=== PATIENT | female | born 1995 | race Caucasian/White ===

== ENCOUNTER 2018-06-30 15:37 | Emergency (ER) | payer OTHER ==
[~2018-06-30] VITALS: Ht 157.5 cm; Wt 97.0 kg
[2018-06-30] MEDS ORDERED: PAIN RELIEF325 MG PO (16:14)
[2018-06-30 16:20] VITALS: BP 110/77
== END 2018-06-30 16:20 | disposition home or self-care (01) ==
LOC: ED 15:37
DX: M75.51 Bursitis of right shoulder (principal); Z33.1 Pregnant state, incidental

== ENCOUNTER 2018-08-22 12:39 | Emergency (ER) | payer OTHER ==
[~2018-08-22] VITALS: Ht 157.5 cm; Wt 99.1 kg
[~2018-08-22 12:39] MED LIST: PAIN RELIEF325 MG PO
[2018-08-22] MEDS ORDERED: PNV PRENATAL PL1 TAB PO (12:56)
[2018-08-22 13:15] VITALS: BP 155/67
== END 2018-08-22 13:15 | disposition left against medical advice (07) ==
LOC: ED 12:39
DX: O47.03 False labor before 37 completed weeks of gestation, third trimester (principal); R06.02 Shortness of breath; R05 Cough; Z3A.31 31 weeks gestation of pregnancy; Z91.19 Patient's noncompliance with other medical treatment and regimen

== ENCOUNTER 2019-01-04 11:58 | Emergency (ER) | payer OTHER ==
[~2019-01-04] VITALS: Ht 157.5 cm; Wt 90.0 kg
[~2019-01-04 11:58] MED LIST changes: +PNV PRENATAL PL1 TAB PO
[2019-01-04 13:00] LABS: HEMATOCRIT 41.2 % (37.0-47.0); HEMOGLOBIN 13.8 g/dl (12.0-16.0); IMMATURE GRANULOCYTES 0.2 % (0.0-5.0); MEAN CELL VOLUME 87.8 fL CALC (80.0-100.0); MEAN CORPUSCULAR HGB 29.4 pG CALC (26.0-32.0); MEAN CORPUSCULAR HGB CONC 33.5 g/L CALC (32.0-36.0); NEUT# 3.56 thou/uL (2.00-7.15); RED BLOOD COUNT 4.69 mill/uL (4.20-5.60)
[2019-01-04 13:02] LABS: URINE BILIRUBIN - DIPSTICK NEGATIVE (NEGATIVE); URINE BLOOD DIPSTICK NEGATIVE (NEGATIVE); URINE COLOR YELLOW; URINE GLUCOSE - DIPSTICK NEGATIVE (NEGATIVE); URINE KETONE NEGATIVE (NEGATIVE); URINE NITRITE - DIPSTICK NEGATIVE (Negative); URINE PROTEIN - DIPSTICK NEGATIVE (NEG-TRACE); URINE SPECIFIC GRAVITY >=1.030; URINE UROBILINOGEN - DIPSTICK 0.2 E.U./dL (0.2)
[2019-01-04 13:03] LABS: URINE LEUK ESTERASE SMALL (NEGATIVE)
[2019-01-04 13:04] LABS: URINE EPITHELIAL CELLS FEW EPI/hpf (0-FEW)
[2019-01-04 13:07] LABS: BARBITURATES NEGATIVE (NEGATIVE); COCAINE NEGATIVE (NEGATIVE); METHADONE NEGATIVE (NEGATIVE); OXCYCODONE NEGATIVE (NEGATIVE); TETRAHYDROCANNABIONOL NEGATIVE (NEGATIVE); TRICYLIC ANTIDEPRESSANTS NEGATIVE (NEGATIVE)
[2019-01-04 13:30] LABS: ALBUMIN 4.2 g/dL (3.2-5.0); ALKALINE PHOSPHATASE 77 u/l (38-126); ANION GAP 13 (6-22 (CALC)); BILIRUBIN, TOTAL 0.7 mg/dL (0.0-1.4); BUN 10 mg/dL (7-17); BUN/CREATININE RATIO 14 (12-20 (CALC)); CARBON DIOXIDE 23 mmol/l (22-30); CHLORIDE 109 mmol/l (95-108); CREATININE 0.7 mg/dL (0.5-1.0); GFR > 60 ML/MIN (>=60 (CALC)); GFR FOR AFR.AMER. > 60 ML/MIN (>=60 (CALC)); LIPASE 48 u/l (23-300); POTASSIUM 3.9 mmol/l (3.5-5.1); SGOT/AST 21 u/l (14-36); SODIUM 141 mmol/l (137-146); TOTAL PROTEIN 7.4 g/dL (6.3-8.2)
[2019-01-04] MEDS ORDERED: GENTAMICIN0.3 % OU (14:07)
[2019-01-04] MEDS ORDERED: MACRODANTIN100 MG PO (14:07)
[2019-01-04 14:15] VITALS: BP 124/63
== END 2019-01-04 14:15 | disposition home or self-care (01) ==
LOC: ED 11:58
DX: N39.0 Urinary tract infection, site not specified (principal); H10.33 Unspecified acute conjunctivitis, bilateral; R10.32 Left lower quadrant pain; R10.31 Right lower quadrant pain; R19.7 Diarrhea, unspecified

== ENCOUNTER 2019-03-07 09:49 | Emergency (ER) | payer OTHER ==
[~2019-03-07] VITALS: Ht 157.5 cm; Wt 100.0 kg
[~2019-03-07 09:49] MED LIST changes: +GENTAMICIN0.3 % OU; +MACRODANTIN100 MG PO
[2019-03-07 10:51] LABS: HEMATOCRIT 38.6 % (37.0-47.0); HEMOGLOBIN 12.7 g/dl (12.0-16.0); IMMATURE GRANULOCYTES 0.4 % (0.0-5.0); MEAN CELL VOLUME 86.7 fL CALC (80.0-100.0); MEAN CORPUSCULAR HGB 28.5 pG CALC (26.0-32.0); MEAN CORPUSCULAR HGB CONC 32.9 g/L CALC (32.0-36.0); NEUT# 5.12 thou/uL (2.00-7.15); RED BLOOD COUNT 4.45 mill/uL (4.20-5.60); RED CELL DISTRI WIDTH 13.5 % (11.5-15.5)
[2019-03-07] MEDS ORDERED: PROVENTIL HFA IN (11:20)
[2019-03-07] MEDS ORDERED: MEDDOSEPAK PO (11:20)
[2019-03-07] MEDS ORDERED: ZITHROMAX250 MG PO (11:20)
[2019-03-07 11:37] VITALS: BP 122/76
== END 2019-03-07 11:44 | disposition home or self-care (01) ==
LOC: ED 09:49
PROVIDERS: Emergency Medicine
DX: J06.9 Acute upper respiratory infection, unspecified (principal); J40 Bronchitis, not specified as acute or chronic; R06.02 Shortness of breath; R07.89 Other chest pain

== ENCOUNTER 2019-05-08 08:31 | Emergency (ER) | payer OTHER ==
[~2019-05-08] VITALS: Ht 157.5 cm; Wt 94.5 kg
[~2019-05-08 08:31] MED LIST changes: +MEDDOSEPAK PO; +PROVENTIL HFA IN; +ZITHROMAX250 MG PO
[2019-05-08] MEDS ORDERED: PROAIR HFA108 MCG/AC IN (09:18)
[2019-05-08 09:20] LABS: URINE GLUCOSE - DIPSTICK NEGATIVE (NEGATIVE); URINE KETONE >=80 mg/dL (NEGATIVE); URINE SPECIFIC GRAVITY 1.025; URINE UROBILINOGEN - DIPSTICK 0.2 E.U./dL (0.2)
[2019-05-08 09:21] LABS: HEMATOCRIT 40.2 % (37.0-47.0); HEMOGLOBIN 13.6 g/dl (12.0-16.0); IMMATURE GRANULOCYTES 0.3 % (0.0-5.0); MEAN CELL VOLUME 85.5 fL CALC (80.0-100.0); MEAN CORPUSCULAR HGB 28.9 pG CALC (26.0-32.0); MEAN CORPUSCULAR HGB CONC 33.8 g/L CALC (32.0-36.0); NEUT# 6.19 thou/uL (2.00-7.15); RED BLOOD COUNT 4.7 mill/uL (4.20-5.60)
[2019-05-08 09:32] LABS: URINE BILIRUBIN - DIPSTICK SMALL (NEGATIVE)
[2019-05-08 09:33] LABS: URINE COLOR DK. YELLOW
[2019-05-08 09:34] LABS: URINE BLOOD DIPSTICK NEGATIVE (NEGATIVE); URINE NITRITE - DIPSTICK NEGATIVE (Negative); URINE PROTEIN - DIPSTICK Trace mg/dL (NEG-TRACE)
[2019-05-08 09:35] LABS: URINE EPITHELIAL CELLS FEW EPI/hpf (0-FEW); URINE LEUK ESTERASE MODERATE (NEGATIVE); URINE MUCUS MODERATE hpf (NONE-FEW)
[2019-05-08 09:36] LABS: BARBITURATES NEGATIVE (NEGATIVE); COCAINE NEGATIVE (NEGATIVE); METHADONE NEGATIVE (NEGATIVE); OXCYCODONE NEGATIVE (NEGATIVE); TETRAHYDROCANNABIONOL NEGATIVE (NEGATIVE); TRICYLIC ANTIDEPRESSANTS NEGATIVE (NEGATIVE); URINE BACTERIA FEW hpf
[2019-05-08 09:41] LABS: ALBUMIN 4.1 g/dL (3.2-5.0); ALKALINE PHOSPHATASE 70 u/l (38-126); ANION GAP 16 (6-22 (CALC)); BILIRUBIN, TOTAL 0.6 mg/dL (0.0-1.4); BUN 6 mg/dL (7-17); BUN/CREATININE RATIO 12 (12-20 (CALC)); CARBON DIOXIDE 18 mmol/l (22-30); CHLORIDE 108 mmol/l (95-108); CREATININE 0.5 mg/dL (0.5-1.0); GFR > 60 ML/MIN (>=60 (CALC)); GFR FOR AFR.AMER. > 60 ML/MIN (>=60 (CALC)); POTASSIUM 3.9 mmol/l (3.5-5.1); SGOT/AST 18 u/l (14-36); SODIUM 138 mmol/l (137-146); TOTAL PROTEIN 7.4 g/dL (6.3-8.2)
[2019-05-08] MEDS ORDERED: ZITHROMAX250 MG PO (09:55)
[2019-05-08] MEDS ORDERED: ZOFRAN4 M1 PO (09:55)
[2019-05-08] MEDS ORDERED: MACROBID100 MG PO (09:55)
[2019-05-08 10:03] VITALS: BP 110/67
== END 2019-05-08 10:12 | disposition home or self-care (01) ==
LOC: ED 08:31
PROVIDERS: Emergency Medicine
DX: O23.41 Unspecified infection of urinary tract in pregnancy, first trimester (principal); O99.511 Diseases of the respiratory system complicating pregnancy, first trimester; J02.0 Streptococcal pharyngitis; Z3A.10 10 weeks gestation of pregnancy

== ENCOUNTER 2019-06-11 11:31 | Emergency (ER) | payer OTHER ==
[~2019-06-11] VITALS: Ht 157.5 cm; Wt 95.0 kg
[~2019-06-11 11:31] MED LIST changes: +MACROBID100 MG PO; +PROAIR HFA108 MCG/AC IN; +ZOFRAN4 M1 PO
[2019-06-11] MEDS ORDERED: ONDANSETRON4 MG PO (11:44)
[2019-06-11 12:35] VITALS: BP 133/64
== END 2019-06-11 12:35 | disposition home or self-care (01) ==
LOC: ED 11:31
DX: S80.01XA Contusion of right knee, initial encounter (principal); W01.0XXA Fall on same level from slipping, tripping and stumbling without subsequent striking against object, initial encounter; Y93.89 Activity, other specified; Y92.511 Restaurant or cafe as the place of occurrence of the external cause; Y99.0 Civilian activity done for income or pay; Z33.1 Pregnant state, incidental

== ENCOUNTER 2020-04-25 19:46 | Emergency (ER) | payer OTHER ==
[~2020-04-25] VITALS: Ht 157.5 cm; Wt 91.0 kg
[~2020-04-25 19:46] MED LIST changes: +ONDANSETRON4 MG PO
[2020-04-25 21:07] LABS: HEMATOCRIT 38.9 % (37.0-47.0); HEMOGLOBIN 13.2 g/dl (12.0-16.0); IMMATURE GRANULOCYTES 0.2 % (0.0-5.0); MEAN CORPUSCULAR HGB 28.5 pG CALC (26.0-32.0); MEAN CORPUSCULAR HGB CONC 33.9 g/dL CAL (32.0-36.0); NEUT# 7.75 thou/uL (2.00-7.15); RED BLOOD COUNT 4.63 mill/uL (4.20-5.60); RED CELL DISTRI WIDTH 13.5 % (11.5-15.5)
[2020-04-25 21:11] LABS: URINE BILIRUBIN - DIPSTICK NEGATIVE (NEGATIVE); URINE BLOOD DIPSTICK NEGATIVE (NEGATIVE); URINE COLOR YELLOW; URINE GLUCOSE - DIPSTICK NEGATIVE (NEGATIVE); URINE KETONE NEGATIVE (NEGATIVE); URINE NITRITE - DIPSTICK NEGATIVE (Negative); URINE PROTEIN - DIPSTICK NEGATIVE (NEG-TRACE); URINE UROBILINOGEN - DIPSTICK 0.2 E.U./dL (0.2)
[2020-04-25 21:14] LABS: URINE LEUK ESTERASE SMALL (NEGATIVE)
[2020-04-25 21:21] LABS: URINE RBC 0-2 RBC/hpf (0-5); URINE SQUAMOUS EPITHELIAL CELL MODERATE EPI/hpf (0-FEW)
[2020-04-25 21:25] LABS: ALBUMIN 4.2 g/dL (3.2-5.0); ALKALINE PHOSPHATASE 63 u/l (38-126); AMYLASE 58 u/l (30-110); BILIRUBIN, TOTAL 0.6 mg/dL (0.0-1.4); BUN 13 mg/dL (7-17); BUN/CREATININE RATIO 21 (12-20 (CALC)); CHLORIDE 109 mmol/l (95-108); CREATININE 0.6 mg/dL (0.5-1.0); GFR > 60 ML/MIN (>=60 (CALC)); GFR FOR AFR.AMER. > 60 ML/MIN (>=60 (CALC)); LIPASE 81 u/l (23-300); POTASSIUM 4.1 mmol/l (3.5-5.1); SGOT/AST 23 u/l (14-36); SODIUM 138 mmol/l (137-146); TOTAL PROTEIN 7.5 g/dL (6.3-8.2)
[2020-04-25 21:26] LABS: ANION GAP 11 (6-22 (CALC)); CARBON DIOXIDE 22 mmol/l (22-30)
[2020-04-25] MEDS ORDERED: TORADOL PO (23:08)
[2020-04-25 23:10] VITALS: BP 104/50
== END 2020-04-25 23:10 | disposition home or self-care (01) ==
LOC: ED 19:46
PROVIDERS: Family Medicine
DX: R10.11 Right upper quadrant pain (principal)
CPT/HCPCS: J0131; Q9967

== ENCOUNTER 2021-03-24 21:25 | Emergency (ER) | payer OTHER ==
[~2021-03-24] VITALS: Ht 157.5 cm; Wt 100.0 kg
[~2021-03-24 21:25] MED LIST changes: +TORADOL PO
[2021-03-24] MEDS ORDERED: [UNRECOGNIZED DRUG - OTHER] TOP (22:35)
[2021-03-25 01:09] VITALS: BP 112/57
== END 2021-03-24 23:05 | disposition home or self-care (01) ==
LOC: ED 21:25
DX: L28.0 Lichen simplex chronicus (principal); J45.909 Unspecified asthma, uncomplicated

== ENCOUNTER 2022-08-29 21:10 | Emergency (ER) | payer OTHER ==
[~2022-08-29] VITALS: Ht 157.5 cm; Wt 107.0 kg
[~2022-08-29 21:10] MED LIST changes: +[UNRECOGNIZED DRUG - OTHER] TOP
[2022-08-29 22:46] VITALS: BP 129/78
[2022-08-29] MEDS ORDERED: GENTAMICIN SULF5 ML OS (22:47)
[2022-08-29 22:50] VITALS: BP 129/78
== END 2022-08-29 22:54 | disposition home or self-care (01) ==
LOC: ED 21:10
DX: S05.02XA Injury of conjunctiva and corneal abrasion without foreign body, left eye, initial encounter (principal); J45.909 Unspecified asthma, uncomplicated; X58.XXXA Exposure to other specified factors, initial encounter

== ENCOUNTER 2022-11-12 22:32 | Emergency (ER) | payer OTHER ==
[~2022-11-12] VITALS: Ht 157.5 cm; Wt 104.0 kg
[~2022-11-12 22:32] MED LIST changes: +GENTAMICIN SULF5 ML OS
[2022-11-12 23:44] LABS: URINE BILIRUBIN - DIPSTICK NEGATIVE (NEGATIVE); URINE BLOOD DIPSTICK NEGATIVE (NEGATIVE); URINE COLOR YELLOW; URINE GLUCOSE - DIPSTICK NEGATIVE (NEGATIVE); URINE KETONE NEGATIVE (NEGATIVE); URINE LEUK ESTERASE NEGATIVE (NEGATIVE); URINE PROTEIN - DIPSTICK NEGATIVE (NEG-TRACE); URINE SPECIFIC GRAVITY >=1.030; URINE UROBILINOGEN - DIPSTICK 0.2 E.U./dL (0.2)
[2022-11-12 23:55] LABS: URINE NITRITE - DIPSTICK NEGATIVE (Negative)
[2022-11-13] MEDS ORDERED: ZITHROMAX250 MG PO (00:44)
[2022-11-13] MEDS ORDERED: ROBITUSSIN AC10 ML PO (00:44)
[2022-11-13] MEDS ORDERED: MEDDOSEPAK PO (00:44)
[2022-11-13 00:51] VITALS: BP 113/69
[2022-11-13] MEDS ORDERED: VENTOLIN HFA IN (00:58)
== END 2022-11-13 01:02 | disposition home or self-care (01) ==
LOC: ED 22:32
PROVIDERS: Emergency Medicine
DX: J06.9 Acute upper respiratory infection, unspecified (principal); Z20.822 Contact with and (suspected) exposure to COVID-19

== ENCOUNTER 2023-01-02 23:12 | Emergency (ER) | payer OTHER ==
[~2023-01-02] VITALS: Ht 160 cm; Wt 104.0 kg
[~2023-01-02 23:12] MED LIST changes: +ROBITUSSIN AC10 ML PO; +VENTOLIN HFA IN
[2023-01-03 00:23] LABS: BASO% 0.5 % (0-3); EOS% 6.1 % (0-8); HEMATOCRIT 42.9 % (37.0-47.0); HEMOGLOBIN 14.3 g/dl (12.0-16.0); IMMATURE GRANULOCYTES 0.1 % (0.0-5.0); LYMPH% 31.7 % (15-41); MEAN CORPUSCULAR HGB 28.3 pG CALC (26.0-32.0); MEAN CORPUSCULAR HGB CONC 33.3 g/dL CAL (32.0-36.0); MONO% 5.6 % (2-13); NEUT# 7.04 thou/uL (2.00-7.15); RED BLOOD COUNT 5.05 mill/uL (4.20-5.60); RED CELL DISTRI WIDTH 13.8 % (11.5-15.5)
[2023-01-03 00:40] LABS: ALBUMIN 4.8 g/dL (3.2-5.0); ALKALINE PHOSPHATASE 54 u/l (38-126); ANION GAP 12 (6-22 (CALC)); BILIRUBIN, TOTAL 0.8 mg/dL (0.02-1.3); BUN 9 mg/dL (7-17); BUN/CREATININE RATIO 14 (12-20 (CALC)); CARBON DIOXIDE 21 mmol/l (22-30); CHLORIDE 106 mmol/l (95-108); CREATININE 0.6 mg/dL (0.5-1.0); GFR FOR AFR.AMER. > 60 ML/MIN (>=60 (CALC)); GFR OTHER RACES > 60 ML/MIN (>=60 (CALC)); POTASSIUM 3.5 mmol/l (3.5-5.1); SGOT/AST 25 u/l (14-36); SODIUM 136 mmol/l (137-146); TOTAL PROTEIN 7.8 g/dL (6.3-8.2)
[2023-01-03 01:20] LABS: BETA-HCG, QUANT(RESULT NUMBER) 35977 mIU/mL
[2023-01-03] MEDS ORDERED: PROMETHAZINE HY25 M1 PO (01:48)
[2023-01-03 02:00] VITALS: BP 116/71
[2023-01-03 02:10] LABS: URINE BILIRUBIN - DIPSTICK NEGATIVE (NEGATIVE); URINE BLOOD DIPSTICK TRACE-INTACT (NEGATIVE); URINE COLOR YELLOW; URINE GLUCOSE - DIPSTICK NEGATIVE (NEGATIVE); URINE KETONE 15 mg/dL (NEGATIVE); URINE PROTEIN - DIPSTICK NEGATIVE (NEG-TRACE); URINE UROBILINOGEN - DIPSTICK 0.2 E.U./dL (0.2)
[2023-01-03 02:11] LABS: URINE LEUK ESTERASE SMALL (NEGATIVE); URINE NITRITE - DIPSTICK NEGATIVE (Negative)
[2023-01-03 02:16] LABS: URINE BACTERIA MANY hpf; URINE SQUAMOUS EPITHELIAL CELL FEW EPI/hpf (0-FEW)
== END 2023-01-03 02:12 | disposition home or self-care (01) ==
LOC: ED 23:12
PROVIDERS: Family Medicine
DX: O21.9 Vomiting of pregnancy, unspecified (principal); Z3A.00 Weeks of gestation of pregnancy not specified

== ENCOUNTER 2023-02-08 10:07 | Emergency (ER) | payer OTHER ==
[~2023-02-08] VITALS: Ht 160 cm; Wt 103.0 kg
[~2023-02-08 10:07] MED LIST changes: +PROMETHAZINE HY25 M1 PO
[2023-02-08 10:16] VITALS: BP 118/79
[2023-02-08] MEDS ORDERED: PRENATAL1 TA1 (11:03)
[2023-02-08 11:05] LABS: ALBUMIN 4.2 g/dL (3.2-5.0); ALKALINE PHOSPHATASE 60 u/l (38-126); ANION GAP 12 (6-22 (CALC)); BILIRUBIN, TOTAL 0.6 mg/dL (0.02-1.3); BUN 10 mg/dL (7-17); BUN/CREATININE RATIO 18 (12-20 (CALC)); CARBON DIOXIDE 21 mmol/l (22-30); CHLORIDE 108 mmol/l (95-108); CREATININE 0.6 mg/dL (0.5-1.0); GFR FOR AFR.AMER. > 60 ML/MIN (>=60 (CALC)); GFR OTHER RACES > 60 ML/MIN (>=60 (CALC)); SGOT/AST 24 u/l (14-36); SODIUM 137 mmol/l (137-146); TOTAL PROTEIN 7.2 g/dL (6.3-8.2)
[2023-02-08 11:09] LABS: BASO% 0.2 % (0-3); EOS% 7.7 % (0-8); HEMATOCRIT 41.7 % (37.0-47.0); IMMATURE GRANULOCYTES 0.2 % (0.0-5.0); LYMPH% 29.8 % (15-41); MEAN CORPUSCULAR HGB 28.9 pG CALC (26.0-32.0); MEAN CORPUSCULAR HGB CONC 33.6 g/dL CAL (32.0-36.0); MONO% 5.4 % (2-13); NEUT# 5.08 thou/uL (2.00-7.15); NEUT% 56.7 % (42-76); RED BLOOD COUNT 4.85 mill/uL (4.20-5.60); RED CELL DISTRI WIDTH 13.5 % (11.5-15.5)
[2023-02-08 11:21] LABS: BETA-HCG, QUANT(RESULT NUMBER) 9898 mIU/mL
[2023-02-08 11:34] VITALS: BP 118/79
== END 2023-02-08 11:58 | disposition home or self-care (01) ==
LOC: ED 10:07
PROVIDERS: Family Medicine
DX: O26.851 Spotting complicating pregnancy, first trimester (principal); Z3A.11 11 weeks gestation of pregnancy; Z67.90 Unspecified blood type, Rh positive

== ENCOUNTER 2023-05-03 20:08 | Emergency (ER) | payer OTHER ==
[~2023-05-03] VITALS: Ht 162.6 cm; Wt 89.0 kg
[2023-05-03] VITALS (7 sets, daily range): BP systolic 95–116; BP diastolic 59–82
[~2023-05-03 20:08] MED LIST changes: +PRENATAL1 TA1
[2023-05-03 21:04] LABS: BASO% 0.3 % (0-3); EOS% 6.2 % (0-8); HEMATOCRIT 39.4 % (37.0-47.0); HEMOGLOBIN 13.3 g/dl (12.0-16.0); IMMATURE GRANULOCYTES 0.2 % (0.0-5.0); LYMPH% 30.9 % (15-41); MEAN CORPUSCULAR HGB 29.4 pG CALC (26.0-32.0); MEAN CORPUSCULAR HGB CONC 33.8 g/dL CAL (32.0-36.0); MONO% 5.5 % (2-13); NEUT# 5.67 thou/uL (2.00-7.15); NEUT% 56.9 % (42-76); RED BLOOD COUNT 4.53 mill/uL (4.20-5.60); RED CELL DISTRI WIDTH 13.2 % (11.5-15.5)
[2023-05-03 21:41] LABS: ALBUMIN 3.6 g/dL (3.2-5.0); ALKALINE PHOSPHATASE 77 u/l (38-126); ANION GAP 11 (6-22 (CALC)); BILIRUBIN, TOTAL 0.4 mg/dL (0.02-1.3); BUN 3 mg/dL (7-17); BUN/CREATININE RATIO 6 (12-20 (CALC)); CARBON DIOXIDE 19 mmol/l (22-30); CHLORIDE 110 mmol/l (95-108); CREATININE 0.5 mg/dL (0.5-1.0); GFR FOR AFR.AMER. > 60 ML/MIN (>=60 (CALC)); GFR OTHER RACES > 60 ML/MIN (>=60 (CALC)); POTASSIUM 3.6 mmol/l (3.5-5.1); SGOT/AST 19 u/l (14-36); SODIUM 137 mmol/l (137-146); TOTAL PROTEIN 6.6 g/dL (6.3-8.2)
[2023-05-03 22:47] LABS: URINE BILIRUBIN - DIPSTICK NEGATIVE (NEGATIVE); URINE BLOOD DIPSTICK NEGATIVE (NEGATIVE); URINE COLOR YELLOW; URINE GLUCOSE - DIPSTICK NEGATIVE (NEGATIVE); URINE KETONE TRACE mg/dL (NEGATIVE); URINE LEUK ESTERASE NEGATIVE (NEGATIVE); URINE NITRITE - DIPSTICK NEGATIVE (Negative); URINE PROTEIN - DIPSTICK NEGATIVE (NEG-TRACE); URINE UROBILINOGEN - DIPSTICK 0.2 E.U./dL (0.2)
[2023-05-03] MEDS ORDERED: ROBITUSSIN200 MG/10 PO (22:53)
[2023-05-03] MEDS ORDERED: ZPAK PO (22:53)
== END 2023-05-03 23:30 | disposition home or self-care (01) ==
LOC: ED 20:08
PROVIDERS: Emergency Medicine
DX: O99.512 Diseases of the respiratory system complicating pregnancy, second trimester (principal); J06.9 Acute upper respiratory infection, unspecified; J45.909 Unspecified asthma, uncomplicated; Z3A.24 24 weeks gestation of pregnancy; Z20.822 Contact with and (suspected) exposure to COVID-19

== ENCOUNTER 2023-07-15 17:30 | Emergency (ER) | payer OTHER ==
[~2023-07-15] VITALS: Ht 162.6 cm; Wt 107.0 kg
[~2023-07-15 17:30] MED LIST changes: +ROBITUSSIN200 MG/10 PO; +ZPAK PO
[2023-07-15 20:39] VITALS: BP 110/74
== END 2023-07-15 20:40 | disposition home or self-care (01) ==
LOC: ED 17:30
DX: S60.221A Contusion of right hand, initial encounter (principal); J45.909 Unspecified asthma, uncomplicated; W23.2XXA Caught, crushed, jammed or pinched between a moving and stationary object, initial encounter

== ENCOUNTER 2023-11-17 21:54 | Emergency (ER) | payer OTHER ==
[~2023-11-17] VITALS: Ht 162.6 cm; Wt 70.0 kg
[2023-11-17] MEDS ORDERED: CLINDAMYCIN300 M1 PO (22:26)
[2023-11-17 22:59] VITALS: BP 106/77
== END 2023-11-17 23:14 | disposition home or self-care (01) ==
LOC: ED 21:54
DX: K04.7 Periapical abscess without sinus (principal); J45.909 Unspecified asthma, uncomplicated

== ENCOUNTER 2023-12-25 23:59 | Emergency (ER) | payer OTHER ==
[~2023-12-25] VITALS: Ht 162.6 cm; Wt 107.5 kg
[~2023-12-25 23:59] MED LIST changes: +CLINDAMYCIN300 M1 PO
[2023-12-26] MEDS ORDERED: methylPREDNISolone SODIUM SUCC 125 MG/2 ML SDV IV STA (00:20)
[2023-12-26] MEDS ORDERED: DiphenhydrAMINE HCL 50 MG/ML SDV IV STA (00:20)
[2023-12-26] MEDS ORDERED: FAMOTIDINE 10MG/ML 2ML SDV IV STA (00:20)
[2023-12-26] MEDS ORDERED: PREDNISONE50 MG PO (01:40)
[2023-12-26 04:47] VITALS: BP 105/69
== END 2023-12-26 05:08 | disposition home or self-care (01) ==
LOC: ED 23:59
DX: T78.1XXA Other adverse food reactions, not elsewhere classified, initial encounter (principal); L53.9 Erythematous condition, unspecified; R22.0 Localized swelling, mass and lump, head

== ENCOUNTER 2024-04-29 22:42 | Emergency (ER) | payer OTHER ==
[~2024-04-29] VITALS: Ht 162.6 cm; Wt 75.0 kg
[~2024-04-29 22:42] MED LIST changes: +CEFDINIR300 MG PO; +NAPROXEN500 MG PO; +PREDNISONE50 MG PO
[2024-04-29] MEDS ORDERED: IPRATROPIUM-Albuterol 0.5MG-2.5MG/3 ML NEB ONE (23:00)
[2024-04-29] MEDS ORDERED: methylPREDNISolone SODIUM SUCC 125 MG/2 ML SDV IV STA (23:00)
[2024-04-29] MEDS ORDERED: DiphenhydrAMINE HCL 50 MG/ML SDV IV STA (23:00)
[2024-04-29] MEDS ORDERED: EPINEPHrine HCL 1 MG/ML AMP IM STA (23:00)
[2024-04-29] MEDS ORDERED: SODIUM CHLORIDE 0.9% 1,000 ML IV STA (23:00)
[2024-04-30] MEDS ORDERED: MEDDOSEPAK PO (00:35)
[2024-04-30 00:51] VITALS: BP 106/57
== END 2024-04-30 01:15 | disposition home or self-care (01) ==
LOC: ED 22:42
DX: T78.1XXA Other adverse food reactions, not elsewhere classified, initial encounter (principal); L50.0 Allergic urticaria; X58.XXXA Exposure to other specified factors, initial encounter

== ENCOUNTER 2024-05-19 17:23 | Emergency (ER) | payer OTHER ==
[~2024-05-19] VITALS: Ht 162.6 cm; Wt 113.0 kg
[2024-05-19] MEDS ORDERED: IPRATROPIUM-Albuterol 0.5MG-2.5MG/3 ML NEB ONE ×2 (17:35)
[2024-05-19] MEDS ORDERED: methylPREDNISolone SODIUM SUCC 125 MG/2 ML SDV IV ONE (17:35)
[2024-05-19 17:42] LABS: BASO% 0.3 % (0-3); EOS% 6.3 % (0-8); HEMATOCRIT 42.9 % (37.0-47.0); HEMOGLOBIN 14.3 g/dl (12.0-16.0); IMMATURE GRANULOCYTES 0.3 % (0.0-5.0); LYMPH% 32.7 % (15-41); MEAN CELL VOLUME 85.1 fL CALC (80.0-100.0); MEAN CORPUSCULAR HGB 28.4 pG CALC (26.0-32.0); MEAN CORPUSCULAR HGB CONC 33.3 g/dL CAL (32.0-36.0); NEUT# 5.69 thou/uL (2.00-7.15); NEUT% 53.4 % (42-76); RED BLOOD COUNT 5.04 mill/uL (4.20-5.60); RED CELL DISTRI WIDTH 12.9 % (11.5-15.5)
[2024-05-19 17:46] VITALS: BP 108/64
[2024-05-19 17:56] LABS: HCG SERUM/URINE (NEG/POS) NEGATIVE (NEGATIVE)
[2024-05-19 17:58] LABS: CREATININE 0.7 mg/dL (0.5-1.0); POTASSIUM 3.8 mmol/l (3.5-5.1)
[2024-05-19 18:00] LABS: ALBUMIN 4.4 g/dL (3.2-5.0); BILIRUBIN, TOTAL 0.9 mg/dL (0.02-1.3); TOTAL PROTEIN 8.1 g/dL (6.3-8.2)
[2024-05-19 18:01] VITALS: BP 97/65
[2024-05-19 18:16] VITALS: BP 101/65
[2024-05-19] MEDS ORDERED: MAGNESIUM SULFATE HEPTAHYDRATE 50 ML IV ONE (18:20)
[2024-05-19] MEDS ORDERED: VENTOLIN HFA108 MCG PO (18:41)
[2024-05-19] MEDS ORDERED: NEBULIZER PO (18:41)
[2024-05-19] MEDS ORDERED: IPRATROPIU0.5 MG/3 M IN (18:41)
[2024-05-19] MEDS ORDERED: PREDNISONE50 MG PO (18:41)
[2024-05-19 18:50] VITALS: BP 99/71
[2024-05-19] MEDS ORDERED: ALBUTEROL SULFATE 2.5 MG VIAL IN ONE (18:55)
[2024-05-19 19:01] VITALS: BP 107/73
[2024-05-19] MEDS ORDERED: ADVAIR DISK1 INH (19:38)
[2024-05-19 19:50] VITALS: BP 107/73
== END 2024-05-19 19:50 | disposition home or self-care (01) ==
LOC: ED 17:23
PROVIDERS: Family Medicine
DX: J45.901 Unspecified asthma with (acute) exacerbation (principal); E66.9 Obesity, unspecified; Z20.822 Contact with and (suspected) exposure to COVID-19
CPT/HCPCS: J3475

== ENCOUNTER 2024-11-10 19:56 | Emergency (ER) | payer OTHER ==
[~2024-11-10] VITALS: Ht 162.6 cm; Wt 109.0 kg
[2024-11-10] VITALS (7 sets, daily range): BP systolic 107–131; BP diastolic 53–84
[~2024-11-10 19:56] MED LIST changes: +ADVAIR DISK1 INH; +IPRATROPIU0.5 MG/3 M IN; +NEBULIZER PO; +VENTOLIN HFA108 MCG PO
[2024-11-10] MEDS ORDERED: IBUPROFEN 600 MG/TAB PO ONE (21:45)
[2024-11-10] MEDS ORDERED: IPRATROPIUM-Albuterol 0.5MG-2.5MG/3 ML NEB ONE (21:45)
[2024-11-10] MEDS ORDERED: ACETAMINOPHEN 500 MG TAB PO ONE (21:45)
[2024-11-10 22:08] LABS: BASO% 0.6 % (0-3); EOS% 8.3 % (0-8); HEMATOCRIT 45.5 % (37.0-47.0); HEMOGLOBIN 14.7 g/dl (12.0-16.0); IMMATURE GRANULOCYTES 0.2 % (0.0-5.0); LYMPH% 31.6 % (15-41); MEAN CELL VOLUME 88.3 fL CALC (80.0-100.0); MEAN CORPUSCULAR HGB 28.5 pG CALC (26.0-32.0); MEAN CORPUSCULAR HGB CONC 32.3 g/dL CAL (32.0-36.0); MONO% 9.7 % (2-13); NEUT# 2.52 thou/uL (2.00-7.15); NEUT% 49.6 % (42-76); RED BLOOD COUNT 5.15 mill/uL (4.20-5.60); RED CELL DISTRI WIDTH 14.2 % (11.5-15.5)
[2024-11-10] MEDS ORDERED: TAM75CAP PO (22:34)
[2024-11-10] MEDS ORDERED: OSELTAMIVIR PHOSPHATE 75 MG/TAB CAP PO ONE (22:35)
== END 2024-11-10 23:08 | disposition home or self-care (01) ==
LOC: ED 19:56
PROVIDERS: Family Medicine
DX: J10.1 Influenza due to other identified influenza virus with other respiratory manifestations (principal); J45.909 Unspecified asthma, uncomplicated; Z20.822 Contact with and (suspected) exposure to COVID-19